=== PATIENT | female | born 2000 | race Hispanic/Latino ===

== ENCOUNTER 2020-10-13 17:50 | Emergency (ER) | payer OTHER, SELFPAY ==
[~2020-10-13] VITALS: Ht 152.4 cm; Wt 55.4 kg
[2020-10-13 17:50] VITALS: BP 142/71
--- OUTSIDE RECORDS SUMMARY | 2020-10-13 17:56 | CCD ---
Author Author [facility] Organization [facility] Address Unknown Phone Unavailable Support Name Relationship Address Phone GLEN HART Next Of Kin [address] [place], [place] [id number] ISHMAEL CASTRO Next Of Kin [address] [place] [address] BELLA KNIGHT Next Of Kin [address] [place] [address] [facility] Next Of Kin [address] [place] [address] Unavailable Re-disclosure Warning The records that you are about to access may contain information from federally-assisted alcohol or drug abuse programs. If such information is present, then the following federally mandated warning applies: This information has been disclosed to you from records protected by federal confidentiality rules (42 CFR part 2). The federal rules prohibit you from making any further disclosure of this information unless further disclosure is expressly permitted by the written consent of the person to whom it pertains or as otherwise permitted by 42 CFR part 2. A general authorization for the release of medical or other information is NOT sufficient for this purpose. The Federal rules restrict any use of the information to criminally investigate or prosecute any alcohol or drug abuse patient.The records that you are about to access may contain highly sensitive health information, the redisclosure of which is protected by Article 27-F of the [facility] Public Health law. If you continue you may have access to information: Regarding HIV / AIDS; Provided by facilities licensed or operated by the [facility] Office of Mental Health; or Provided by the [facility] Office for People With Developmental Disabilities. If such information is present, then the following [facility] mandated warning applies: This information has been disclosed to you from confidential records which are protected by state law. State law prohibits you from making any further disclosure of this information without the specific written consent of the person to whom it pertains, or as otherwise permitted by law. Any unauthorized further disclosure in violation of state law may result in a fine or long term sentence or both. A general authorization for the release of medical or other information is NOT sufficient authorization for further disc losure. Family History Family Member Name Family Member Gender Family Member Status Date o f Status Description Data Source(s) Unknown Female Diagnosis 01/14/2014 12:00:00 AM ADILENE WYNN ([facility]) Insurance Providers Payer name Policy type / Coverage type Policy ID Covered alliance party ID Covered alliance party's relationship to alex Policy Alex Plan Information [facility] ACTIVE DUTY [id number]
[2020-10-13] MEDS ORDERED: MULTTAB20 PO (19:30)
[2020-10-13 20:08] LABS: BASO % 0.3 % (0.0-1.0); EOS # 0.1 10^3/uL (0.0-0.5); EOS % 1.1 % (0.0-3.0); HEMATOCRIT 41.8 % (36.0-47.0); LYMPH # 3.5 10^3/uL (1.5-5.0); LYMPH % 48.7 % (24.0-44.0); MEAN CORPUSCULAR HEMOGLOBIN 28.1 pg (27.0-33.0); MEAN CORPUSCULAR HGB CONC 31.1 g/dl (32.0-36.5); MEAN CORPUSCULAR VOLUME 90.3 fl (80.0-96.0); MONO # 0.4 10^3/uL (0.0-0.8); MONO % 6.1 % (0.0-5.0); NEUTROPHILS # 3.2 10^3/uL (1.5-8.5); NEUTROPHILS % 43.7 % (36.0-66.0); PLATELET COUNT, AUTOMATED 270 10^3/uL (150-450); RED BLOOD COUNT 4.63 10^6/uL (4.00-5.40); WHITE BLOOD COUNT 7.2 10^3/uL (4.0-10.0)
[2020-10-13] MEDS ORDERED: NS 1,000 ML IV ONE (20:15)
[2020-10-13 20:34] LABS: BLOOD UREA NITROGEN 14 MG/DL (7-18); CALCIUM LEVEL 9.1 MG/DL (8.5-10.1); CARBON DIOXIDE LEVEL 28 MEQ/L (21-32); CHLORIDE LEVEL 105 MEQ/L (98-107); CREATININE FOR GFR 0.66 MG/DL (0.55-1.30); GLOMERULAR FILTRATION RATE > 60.0 (>60); GLUCOSE, FASTING 89 MG/DL (70-100); POTASSIUM SERUM 4.2 MEQ/L (3.5-5.1); SODIUM LEVEL 138 MEQ/L (136-145)
[2020-10-13 20:42] LABS: HCG, SERUM QUALITATIVE NEGATIVE (NEGATIVE)
--- NOTE | 2020-10-13 21:38 | REPVR ---
PROCEDURE INFORMATION: Exam: US Nonobstetric Pelvis; Complete Exam date and time: 10/13/2020 8:53 PM Age: 20 years old Clinical indication: Other: Bleeding; Additional info: Vaginal bleeding TECHNIQUE: Imaging protocol: Transabdominal pelvic nonobstetric ultrasound. Complete exam. Real time ultrasound with image documentation. COMPARISON: No relevant prior studies available. FINDINGS: Uterus/cervix: Uterus is anteverted. Intrauterine device located in the lower uterine segment. Uterus measures 9.4 x 4.6 x 5.8 cm. Right adnexa: Right ovary measures 3.1 x 2.2 x 3.3 cm. Left adnexa: Left ovary measures 1.9 x 1.4 x 2.0 cm Intraperitoneal space: No intraperitoneal fluid. Urinary bladder: Normal. Other findings: Normal flow to bilateral ovaries. IMPRESSION: Intrauterine contraceptive device located in the lower uterine segment. Electronically signed by: Per Oakley On 10/13/2020 21:38:15 PM
--- OUTSIDE RECORDS SUMMARY | 2020-10-13 21:45 | CCD ---
Author Author [facility] Organization [facility] Address Unknown Phone Unavailable Support Name Relationship Address Phone HAILEY GLEN Next Of Kin [address] [place] [address] ISHMAEL CASTRO Next Of Kin [address] [place] [address] BELLA KNIGHT Next Of Kin [address] [place], [place] [id number] [facility] Next Of Kin [address] [place] [address] Unavailable Re-disclosure Warning The records that you [...] is protected by Article 27-F of the [facility] Public Health law. If you continue you may have access to information: Regarding HIV / AIDS; Provided by facilities licensed or operated by the [facility] Office of Mental Health; or Provided by the [facility] Office for People With Developmental Disabilities. If such information is present, then the following [facility] mandated warning applies: This information has [...] law may result in a fine or retirement sentence or both. A general authorization for the release of medical or other information is NOT sufficient authorization for further disc losure. Family History Family Member Name Family Member Gender Family Member Status Date o f Status Description Data Source(s) Unknown Female Diagnosis 01/14/2014 12:00:00 AM ADILENE WYNN ([facility]) Insurance Providers Payer name Policy type / Coverage type Policy ID Covered libertarian ID Covered libertarian's relationship to alex Policy Alex Plan Information SELF PAY ONLY [id number] SP [id number] [facility] ACTIVE DUTY [id number] SP [id number]
== END 2020-10-13 21:51 | disposition home or self-care (01) ==
LOC: M ED 17:50
DX: N93.9 Abnormal uterine and vaginal bleeding, unspecified (principal); Z97.5 Presence of (intrauterine) contraceptive device

== ENCOUNTER 2020-11-18 06:06 | Emergency (ER) | payer OTHER ==
[~2020-11-18] VITALS: Ht 152.4 cm; Wt 52.3 kg
[~2020-11-18 06:06] MED LIST: MULTTAB20 PO
[2020-11-18] MEDS ORDERED: MACR100C43 PO (07:14)
--- OUTSIDE RECORDS SUMMARY | 2020-11-18 07:22 | CCD ---
Author Author [facility] Organization [facility] Address Unknown Phone Unavailable Support Name Relationship Address Phone GLEN HART Next Of Kin [address] [place], [place] [id number] ISHMAEL CASTRO Next Of Kin [address] [place] [address] BELLA KNIGHT Next Of Kin [address] [place] [address] [facility] Next Of Kin [address] [place] [address] Unavailable Re-disclosure Warning The records that you [...] is protected by Article 27-F of the [facility] Public Health law. If you continue you may have access to information: Regarding HIV / AIDS; Provided by facilities licensed or operated by the [facility] Office of Mental Health; or Provided by the [facility] Office for People With Developmental Disabilities. If such information is present, then the following [facility] mandated warning applies: This information has been [...] Source(s) Unknown Female Diagnosis 01/14/2014 12:00:00 AM EDT TIANNA ([facility]) Insurance Providers Payer name Policy type / Coverage type Policy ID Covered libertarian ID Covered libertarian's relationship to alex Policy Alex Plan Information [facility] ACTIVE DUTY [id number] SP [id number] [employer] [facility] [facility] [id number] S [id number] SELF PAY ONLY [id number] SP [id number] Results ID Date Data Source [id number] 10/19/2020 12:00:00 AM EST [facility] Name Value Range Interpretation Code Description Data Clare rce(s) Supporting Document(s) SARS-CoV2 Rapid Antigen Positive [facility] and reported by [facility] Procedure
[2020-11-18] MEDS ORDERED: PYRI1TAB5 PO (07:27)
[2020-11-18 07:33] VITALS: BP 125/75
== END 2020-11-18 07:35 | disposition home or self-care (01) ==
LOC: M ED 06:06
DX: N30.90 Cystitis, unspecified without hematuria (principal)